=== PATIENT | female | born 1965 | race Caucasian/White ===

== ENCOUNTER → 2021-08-21 | Outpatient (CLI) | payer OTHER ==
[2021-08-21 13:11] VITALS: BP 137/94; PULSE 95; RESP 16; TEMP 95
--- NOTE | 2021-08-21 13:33 | P.GSHP ---
History of Present Illness H&P Date: 08/21/21 Chief Complaint: abnormal right breast mammogram Maddy is a 56 year old white female seen in consultation for Edie San regarding a mammographic abnormality in her right breast. She had a bilateral mammogram performed on 05-06-2021 which resulted in additional views of the right breast. Additional views of the right breast were performed on [id number] which revealed pleomorphic calcifications in the right breast at 11:00. Stereotactic core biopsy was recommended. She did have a right breast stereotacti4 [facility] [place] biopsy at the 12 o'clock position in 2019 which was benign. Not feel any lumps masses or nodules of concern in either breast. She is not complaining of any nipple discharge or skin changes. She is not complaining of any infection or trauma to the breast. Caffeine: 4 cans of coke/day nicotine: none chocolate: occasional Family History: mother: breast at 60 father: prostate brother: testicular paternal grandmother: bladder cancer Hormonal History: menarche: 14 M1, age at first : 28, breast feed: yes menopause: last period 9 months ago/ ablation done BCP: 18 until 27 hormones: none Surgical history: tubal tonsil and adenoids uterine ablation sinus surgery twice Medical History: depression HTN Social History: smoke: none alcohol: occasional drugs: none - Constitutional Constitutional: Reports sweats - EENT Eyes: denies blurred vision, denies pain Ears: deny: decreased hearing, tinnitus Ears, nose, mouth and throat: Denies headache, Denies sore throat - Breasts Breasts: bilateral: as per HPI - Cardiovascular Cardiovascular: Denies chest pain, Denies shortness of breath - Respiratory Respiratory: Denies cough, Denies 7 - Gastrointestinal Gastrointestinal: Denies abdominal pain, Denies diarrhea, Denies nausea, Denies vomiting - Genitourinary (Female) Genitourinary: Denies dysuria, Denies hematuria - Menstruation Comment: perimenopausal - Musculoskeletal Musculoskeletal: Denies myalgias - Integumentary Integumentary: Denies pruritus, Denies rash - Neurological Neurological: Denies numbness, Denies weakness - Psychiatric Psychiatric: Reports depression - Endocrine Endocrine: Denies fatigue, Denies weight change - Hematologic/Lymphatic Comment: none - Allergic/Immunologic Allergic/Immunologic: Reports seasonal allergies Past Medical History Past Medical History: Hypertension History of Any Multi-Drug Resistant Organisms: None Reported Past Surgical History: Adenoidectomy, Tonsillectomy, Tubal Ligation, Uterine Ablation Past Anesthesia/Blood Transfusion Reactions: No Reported Reaction Past Psychological History: Depression Smoking Status: Never smoker Past Alcohol Use History: Occasional Past Drug Use History: None Reported Medications and Allergies Home Medications Medication Instructions Recorded Confirmed Type Citalopram Hydrobromide [CeleXA] 10 mg PO DAILY 07/14/21 08/21/21 History Hydrochlorothiazide 12.5 mg PO DAILY PRN 07/14/21 08/21/21 History [hydroCHLOROthiazide] amLODIPine [Norvasc] 10 mg PO DAILY 07/14/21 08/21/21 History Allergies Allergy/AdvReac Type Severity Reaction Status Date / Time No Known Allergies Allergy Verified 08/21/21 13:04 Surgical - Exam Vital Signs Temp Pulse Resp BP 95 F L 95 16 137/94 08/21/21 13:04 08/21/21 13:04 08/21/21 13:04 08/21/21 13:04 BMI 28.3 - General well developed, well nourished, no distress - Eyes normal ocular movement - ENT no hearing loss, no congestion - Neck trachea midline - Respiratory normal respiratory effort, clear to auscultation - Cardiovascular Rhythm: regular Heart Sounds: normal: S1, S2 - Abdomen Abdomen: soft, non tender, no guarding, no rigid, no rebound - Integumentary normal turgor - Neurologic no disoriented, no combative - Psychiatric oriented to time, oriented to person, oriented to place, speech is normal, memory intact Breast Exam: BRA: 36DD Inspection: bilateral grade 2/3 ptosis palpation: Right breast: Multi-positional exam fibrocystic changes no dominant masses or no dules of concern Right axilla: No adenopathy of concern Left breast: Multi-positional exam fibrocystic changes no dominant masses or nodules of concern Left axilla: No adenopathy of concern Results Mammogram reviewed with Dr. Cano, microcalcifications noted in the upper inner quadrant right breast for which stereotactic core biopsy recommended Assessment and Plan Assessment: Impression: Microcalcifications of concern right breast upper inner quadrant Fibrocystic breast changes Positive family history of cancer Plan: Stereotactic core biopsy Risk and benefits of the procedure discussed with the patient. Risks include but are not limited to bleeding, infection, reaction to the anesthetic. Additionally if the lesion biopsy were felt to be discordant or not adequately sampled an open biopsy may be recommended. Alternatives such as watchful waiting or open biopsy or discussed but not recommended. The patient unders tands and wishes to proceed. CC: Edie San N.P., Dr. Mcbride
== END | disposition home or self-care (01) ==
LOC: WWCWWP 12:47
PROVIDERS: ATTEND Surgery
DX: Z53.9 Procedure and treatment not carried out, unspecified reason (principal)

== ENCOUNTER → 2021-08-22 | Day surgery (SDC) | payer OTHER ==
[2021-08-22 07:22] VITALS: RESP 16
--- NOTE | 2021-08-22 09:00 | P.PCN ---
Date of Procedure: 08/22/21 Preoperative Diagnosis: Mammographic abnormality right breast Postoperative Diagnosis: Same Procedure(s) Performed: Stereotactic core biopsy right breast Anesthesia: local Surgeon: Taylor Guillen Pathology: other (breast tissue) Condition: stable Disposition: same day Indications for Procedure: Mammographic abnormality right breast upper inner quadrant Operative Findings: Radiographic specimen reveals microcalcifications of concern Description of Procedure: Maddy is a 56-year-old white female who The mammogram was noted to have microcalcifications of concern at the upper inner aspect of the right breast. Stereotactic core biopsy was recommended. Risks and benefits of the procedure were discussed with the patient. Risks include but are not limited to his cornea sampling, bleeding, infection, reaction to the anesthetic. Alternatives such as watchful waiting or resection the operating room were discussed but not recommended. The patient understood and agreed to the procedure. The patient was taken to the stereotactic core biopsy room. She was positioned prone on the low rad table. A system support analyst film was obtained. The area of concern was identified and targeted. A medial to lateral approach was utilized. The breast was prepped using Betadine. 20 mL of 1% lidocaine were used to anesthetize the area of concern. A 9-gauge vacuum-assisted core rotating biopsy needle was driven to the correct coordinates and fired. A post-fire film was obtained. The needle appeared to be in the correct location. 13 specimens were obtained and radiographs. Only 2 areas of microcalcification were identified and it was felt that a better sampling could be obtained. After repeat radiograph the needle was repositioned. Additional samples were obtained from the 12 to 6 o'clock position through 9:00. Radiograph of the specimen revealed the calcifications of concern. The wound was lavaged. After assured that hemostasis was attained a secure kisha top Clip was placed. This appeared to be in the correct location. The patient tolerated the procedure in stable condition. Specimen is sent for pathology. Patient will follow-up with Dr. Burnham next week. It is felt that an adequate sample of the correct area was obtained.
[2021-08-22 09:15] VITALS: BP 126/82; PULSE 86; TEMP 98.6
--- NOTE | 2021-08-25 08:51 | MM ---
romelia is a 56 year old female who on mammogram was noted to have microcalcifications of concern at the upper inner aspect of the right breast. Stereotactic core biopsy was recommended. Risks and benefits of the procedure were discussed with the patient. Risks include but are not limited to discordant sampling, bleeding, infection, reaction to the anesthetic. Alternatives such as watchful waiting or resection in the operating room were discussed but not recommended. The patient understood and agreed to the procedure. The patient was taken to the stereotactic core biopsy room. She was positioned prone on the lo-rad table. A print binding worker film was obtained. The area of concern was identified and targeted. A medial to lateral approach was utilized. The breast was prepped using Betadine. 20 mL of 1% lidocaine were used to anesthetize the area of concern. A 9-gauge vacuum-assisted core rotating biopsy needle was driven to the correct coordinates and fired. A post-fire film was obtained. The needle appeared to be in the correct location. 13 specimens were obtained and an x-ray preformed of the specimen. Only 2 areas of microcalcification were identified and it was felt that a better sampling could be obtained. After repeat radiograph the needle was repositioned. Additional samples were obtained from the 12 to 6 o'clock position through 9:00. Radiograph of the specimen revealed the calcifications of concern. The wound was lavaged. After being assured that hemostasis was attained a secure kisha top-hat Clip was placed. This appeared to be in the correct location. The patient tolerated the procedure in stable condition. Specimen was sent for pathology. Patient will follow-up with Dr. Burnham next week. It is felt that an adequate sample of the correct area was obtained. LUCI
== END ==
LOC: RADMAMWWP 07:06
PROVIDERS: ATTEND Surgery
DX: N60.11 Diffuse cystic mastopathy of right breast (principal); N64.1 Fat necrosis of breast; R92.0 Mammographic microcalcification found on diagnostic imaging of breast; R92.8 Other abnormal and inconclusive findings on diagnostic imaging of breast; N62 Hypertrophy of breast
CPT/HCPCS: 88305; 19081; A4648; J2001

== ENCOUNTER → 2021-08-28 | Outpatient (CLI) | payer OTHER ==
[2021-08-28 13:22] VITALS: BP 125/87; PULSE 87; RESP 16; TEMP 98
--- NOTE | 2021-08-28 13:32 | P.PN ---
Subjective Progress Note Date: 08/28/21 Principal diagnosis: fat necrosis right breast Maddy is a 56 year old white female status post right breast stero biopsy on 08-22-21. Her pathology was benign. It showed focal fat necrosis and microcalcification. This was felt to be benign and concordant. She tolerated the procedure without difficulty. Objective - Vital Signs Vital signs: Vital Signs Temp 98.0 F 08/28/21 13:14 Pulse 87 08/28/21 13:14 Resp 16 08/28/21 13:14 BP 125/87 08/28/21 13:14 Pulse Ox Intake & Output 08/27/21 08/28/21 08/28/21 18:59 06:59 18:59 Weight 65.771 kg - Constitutional General appearance: Present: cooperative - EENT Eyes: Present: EOMI ENT: Present: hearing grossly normal - Neck Neck: Present: normal ROM - Respiratory Respiratory: bilateral: CTA - Cardiovascular Heart sounds: normal: S1, S2 - Integumentary Integumentary Comment(s): biopsy site right breast mild ecchymosis no evidence of hematoma or infection - Musculoskeletal Musculoskeletal: Present: gait normal - Psychiatric Psychiatric: Present: A&O x's 3, appropriate affect, intact judgment & insight Assessment and Plan Assessment: Impression: 1. Right breast core biopsy benign focal fat necrosis and microcalcification Plan: Repeat right breast mammogram in 6 months with examination at that time CC: Edie San
== END | disposition home or self-care (01) ==
LOC: WWCWWP 12:49
PROVIDERS: ATTEND Surgery
DX: Z53.9 Procedure and treatment not carried out, unspecified reason (principal)

== ENCOUNTER → 2022-02-20 | Outpatient (CLI) | payer OTHER ==
--- NOTE | 2022-02-23 14:00 | MM ---
Reason for Exam: Follow-up at short interval from prior study. Last screening mammogram was performed 9 month(s) ago. Patient History: Menarche at age 13. First Full-Term at age 28. Postmenopausal. Patient has history of breast feeding. 08/22/2021, Benign Core Biopsy on the right side. Mother had breast cancer, left, age 60. Risk Values: Irene 5 year model risk: 3.5%. NCI Lifetime model risk: 22.3%. Prior Study Comparison: 05/06/2021 Bilateral MG 3D screening mammo w/cad, [place]. 05/29/2021 Right MG 3D work up w/cad RT, [place]. Tissue Density: Right: The breast tissue is heterogeneously dense. This may lower the sensitivity of mammography. Findings: Analyzed By CAD. There are 2 mammotome biopsy clips in the right breast redemonstrated. Regional benign appearing round calcifications in the right breast upper aspect are redemonstrated. Benign-appearing right axillary lymph nodes are redemonstrated. No suspicious new mass or distortion in the right breast. Overall Assessment: Benign, BI-RAD 2 Management: Screening Mammogram of both breasts in 3 months. Back on annual schedule. Results were given to the patient verbally at the time of exam. Electronically signed and approved by: Alexander Ann M.D.
== END | disposition home or self-care (01) ==
LOC: RADMAMWWP 14:46
PROVIDERS: ATTEND Surgery
DX: R92.8 Other abnormal and inconclusive findings on diagnostic imaging of breast (principal)
CPT/HCPCS: 77065; G0279; 77061

== ENCOUNTER → 2022-02-26 | Outpatient (CLI) | payer OTHER ==
[2022-02-26 12:40] VITALS: BP 129/86; PULSE 87; RESP 16; TEMP 98.1
--- NOTE | 2022-02-26 13:02 | P.PN ---
Subjective Progress Note Date: 02/26/22 Maddy is a 56 year old white female seen in consultation for Edie San regarding a mammographic abnormality in her right breast. She had a bilateral mammogram performed on 05-06-2021 which resulted in additional views of the right breast. Additional views of the right breast were performed on [id number] which revealed pleomorphic calcifications in the right breast at 11:00. Stereotactic core biopsy was recommended. She did have a right breast stereotactic core biopsy at the 12 o'clock position in 2019 which was benign. Not feel any lumps masses or nodules of concern in either breast. She is not complaining of any nipple discharge or skin changes. She is not complaining of any infection or trauma to the breast. She had a stero core biopsy on 08-22-21 which was benign specific. She had a repeat right breast mammogram on 02-20-22 which was benign BIRAD 2. Is not complaining of any lumps masses or nodules of concern in either breast. Caffeine: 4 cans of coke/day nicotine: none chocolate: occasional Family History: mother: breast at 60 father: prostate brother: testicular paternal grandmother: bladder cancer Hormonal History: menarche: 14 M1, age at first : 28, breast feed: yes menopause: last period 9 months ago/ ablation done BCP: 18 until 27 hormones: none Surgical history: tubal tonsil and adenoids uterine ablation sinus surgery twice Medical History: depression HTN Social History: smoke: none alcohol: occasional drugs: none - Constitutional Constitutional: Reports sweats - EENT Eyes: denies blurred vision, denies pain Ears: deny: decreased hearing, tinnitus Ears, nose, mouth and throat: Denies headache, Denies sore throat - Breasts Breasts: bilateral: as per HPI - Cardiovascular Cardiovascular: Denies chest pain, Denies shortness of breath - Respiratory Respiratory: Denies cough - Gastrointestinal Gastrointestinal: Denies abdominal pain, Denies diarrhea, Denies nausea, Denies vomiting - Genitourinary (Female) Genitourinary: Denies dysuria, Denies hematuria - Menstruation Comment: perimenopausal - Musculoskeletal Musculoskeletal: Denies myalgias - Integumentary Integumentary: Denies pruritus, Denies rash - Neurological Neurological: Denies numbness, Denies weakness - Psychiatric Psychiatric: Reports depression - Endocrine Endocrine: Denies fatigue, Denies weight change - Hematologic/Lymphatic Comment: none - Allergic/Immunologic Allergic/Immunologic: Reports seasonal allergies Objective - Vital Signs Vital signs: Vital Signs Temp 98.1 F 02/26/22 12:37 Pulse 87 02/26/22 12:37 Resp 16 02/26/22 12:37 BP 129/86 02/26/22 12:37 Pulse Ox 97 02/26/22 12:37 FiO2 Intake & Output 02/25/22 02/26/22 02/26/22 18:59 06:59 18:59 Weight 65.771 kg - Constitutional General appearance: Present: cooperative - EENT Eyes: Present: EOMI ENT: Present: hearing grossly normal - Neck Neck: Present: normal ROM - Respiratory Respiratory: bilateral: CTA - Cardiovascular Rhythm: regular Heart sounds: normal: S1, S2 - Integumentary Integumentary: Present: normal turgor - Musculoskeletal Musculoskeletal: Present: gait normal - Psychiatric Psychiatric: Present: A&O x's 3, appropriate affect, intact judgment & insight - Additional findings Additional findings: Breast exam: Bra: 36 DD Inspection: Bilateral grade 2 ptosis Palpation: Right breast: Multi-positional exam no dominant masses or nodules of concern, fibrocystic changes, biopsy site identified healed well Right axilla: No adenopathy of concern Left breast: 40 positional exam no dominant masses or nodules of concern, fibrocystic changes Left axilla: No adenopathy of concern Assessment and Plan Assessment: Impression: Fibrocystic breast changes Plan: Bilateral mammogram in 3 months with physician exam at that time Cc: Dr. Tarik Mcbride
== END ==
LOC: WWCWWP 12:25
PROVIDERS: ATTEND Surgery
DX: N60.11 Diffuse cystic mastopathy of right breast (principal); N60.12 Diffuse cystic mastopathy of left breast; F32.A Depression, unspecified; I10 Essential (primary) hypertension

== ENCOUNTER → 2022-05-25 | Outpatient (CLI) | payer OTHER ==
--- NOTE | 2022-05-26 08:35 | MM ---
Reason for Exam: Screening (asymptomatic). Last screening mammogram was performed 12 month(s) ago. Patient History: Menarche at age 13. First Full-Term at age 28. Postmenopausal. Patient has history of breast feeding. 12/21/2014, MG stereo VAD BX RT on the Right side. 08/22/2021, Benign Core Biopsy on the right side. Mother had breast cancer, left, age 60. Risk Values: Irene 5 year model risk: 3.6%. NCI Lifetime model risk: 21.9%. Prior Study Comparison: 05/06/2021 Bilateral MG 3D screening mammo w/cad, [place]. 05/29/2021 Right MG 3D work up w/cad RT, [place]. 02/20/2022 Right MG 3D diag mammo w/cad RT, [facility]. Tissue Density: There are scattered fibroglandular densities. Findings: Analyzed By CAD. At the upper medial aspect of the right breast there are some indeterminate microcalcifications not seen definitively on prior exam possibly 6 cm from the nipple on the CC view, 8 cm on the MLO view. Notification views are recommended. Overall Assessment: Incomplete: need additional imaging evaluation, BI-RAD 0 Management: Special View Mammogram of the right breast. A clinical breast exam by your physician is recommended on an annual basis and results should be correlated with mammographic findings. Electronically signed and approved by: Nestor Mai M.D. Radiologis
== END | disposition home or self-care (01) ==
LOC: RADMAMWWP 09:15
PROVIDERS: ATTEND Surgery
DX: Z12.31 Encounter for screening mammogram for malignant neoplasm of breast (principal)
CPT/HCPCS: 77063; 77067

== ENCOUNTER → 2022-05-28 | Outpatient (CLI) | payer OTHER ==
[2022-05-28 08:50] VITALS: BP 152/82; PULSE 64; RESP 17; TEMP 98.9
--- NOTE | 2022-05-28 10:03 | P.PN ---
Subjective Progress Note Date: 05/28/22 Principal diagnosis: abnormal right breast mammogram Maddy was initially seen about one year ago year old white female seen in consultation for Edie San regarding a mammographic abnormality in her right breast. She had a bilateral mammogram performed on 05-06-2021 which res ulted in additional views of the right breast. Additional views of the right breast were performed on [id number] which revealed pleomorphic calcifications in the right breast at 11:00. Stereotactic core biopsy was recommended. She did have a right breast stereotactic core biopsy at the 12 o'clock position in 2019 which was benign. Not feel any lumps masses or nodules of concern in either breast. She is not complaining of any nipple discharge or skin changes. She is not complaining of any infection or trauma to the breast. She had a stero core biopsy on 08-22-21 which was benign specific. She had a repeat right breast mammogram on 02-20-22 which was benign BIRAD 2. Is not complaining of any lumps masses or nodules of concern in either breast. A repeat bilateral mammogram was done on 05-25-22. Additional views of the right breast were recommended. A persistent group of calcification were noted in the right breast. The patient was recommended to have a stero biopsy. The films were reviewed with radiologist Dr. Lemus. The patient does not feel any lumps masses or nodules of concern in either breast. Caffeine: 4 cans of coke/day nicotine: none chocolate: occasional Family History: mother: breast at 60 father: prostate brother: testicular paternal grandmother: bladder cancer Hormonal History: menarche: 14 M1, age at first : 28, breast feed: yes menopause: last period 9 months ago/ ablation done BCP: 18 until 27 hormones: none Surgical history: tubal tonsil and adenoids uterine ablation sinus surgery twice Medical History: depression HTN Social History: smoke: none alcohol: occasional drugs: none - Constitutional Constitutional: Reports sweats - EENT Eyes: denies blurred vision, denies pain Ears: deny: decreased hearing, tinnitus Ears, nose, mouth and throat: Denies headache, Denies sore throat - Breasts Breasts: bilateral: as per HPI - Cardiovascular Cardiovascular: Denies chest pain, Denies shortness of breath - Respiratory Respiratory: Denies cough - Gastrointestinal Gastrointestinal: Denies abdominal pain, Denies diarrhea, Denies nausea, Denies vomiting - Genitourinary (Female) Genitourinary: Denies dysuria, Denies hematuria - Menstruation Comment: perimenopausal - Musculoskeletal Musculoskeletal: Denies myalgias - Integumentary Integumentary: Denies pruritus, Denies rash - Neurological Neurological: Denies numbness, Denies weakness - Psychiatric Psychiatric: Reports depression - Endocrine Endocrine: Denies fatigue, Denies weight change - Hematologic/Lymphatic Comment: none - Allergic/Immunologic Allergic/Immunologic: Reports seasonal allergies Objective - Vital Signs Vital signs: Vital Signs Temp 98.9 F 05/28/22 08:48 Pulse 64 05/28/22 08:48 Resp 17 05/28/22 08:48 BP 152/82 05/28/22 08:48 Pulse Ox 100 05/28/22 08:48 FiO2 Intake & Output 05/27/22 05/28/22 05/28/22 18:59 06:59 18:59 Weight 77.111 kg - Constitutional General appearance: Present: cooperative - EENT Eyes: Present: EOMI ENT: Present: hearing grossly normal - Neck Neck: Present: normal ROM - Respiratory Respiratory: bilateral: CTA - Cardiovascular Rhythm: regular Heart sounds: normal: S1, S2 - Gastrointestinal General gastrointestinal: Present: soft - Integumentary Integumentary: Present: normal turgor - Musculoskeletal Musculoskeletal: Present: gait normal - Psychiatric Psychiatric: Present: A&O x's 3, appropriate affect, intact judgment & insight - Additional findings Additional findings: Breast Exam: BRA: 36DD inspection: bilateral grade 2 ptosis Palpation: right breast: Multiple positional exam fibrocystic changes no dominant masses or nodules of concern Right axilla: No adenopathy of concern Left breast: Multi-positional exam fibrocystic changes no dominant masses or nodules of concern Left axilla: No adenopathy of concern Assessment and Plan Assessment: Impression: Bilateral fibrocystic breast changes Radiographic area of microcalcifications right breast for which core biopsy is recommended Plan: Stereotactic core biopsy right breast risk and benefits of the procedure were discussed with the patient. Risks include but are not limited to bleeding, infection, reaction to the anesthetic. Additionally of the specimen were to be discordant done for the resection the operating room may be recommended. The patient understands this and wishes to proceed. Alternatives have been discussed which include watchful waiting a resection of the operating room before not recommended. CC: Dr. Mcbride
== END | disposition home or self-care (01) ==
LOC: WWCWWP 08:14
PROVIDERS: ATTEND Surgery
DX: Z53.9 Procedure and treatment not carried out, unspecified reason (principal)

== ENCOUNTER → 2022-05-28 | Outpatient (CLI) | payer OTHER ==
--- NOTE | 2022-05-28 08:49 | MM ---
Reason for Exam: Additional evaluation requested from abnormal screening. Last screening mammogram was performed less than 1 month ago. Patient History: Menarche at age 13. First Full-Term at age 28. Postmenopausal. Patient has history of breast feeding. 12/21/2014, MG stereo VAD BX RT on the Right side. 08/22/2021, Benign Core Biopsy on the right side. Mother had breast cancer, left, age 60. Risk Values: Irene 5 year model risk: 3.6%. NCI Lifetime model risk: 21.9%. Prior Study Comparison: 05/06/2021 Bilateral MG 3D screening mammo w/cad, [place]. 05/29/2021 Right MG 3D work up w/cad RT, [place]. 02/20/2022 Right MG 3D diag mammo w/cad RT, [facility]. 05/25/2022 Bilateral MG 3D screening mammo w/cad, [facility]. Tissue Density: Right: The breast tissue is heterogeneously dense. This may lower the sensitivity of mammography. Findings: Analyzed By CAD. There are 2 biopsy clips in the right breast redemonstrated. There are scattered benign-appearing round calcifications throughout the right breast redemonstrated. There is persistent 3 mm heterogeneous group of calcifications in the middle depth also slightly inner aspect that is new from older studies on additional views. Overall Assessment: Suspicious, BI-RAD 4 Management: Stereotactic Core Biopsy of the right breast. Stereo core biopsy now. Results were given to the patient verbally at the time of exam. Electronically signed and approved by: Alexander Ann M.D.
== END | disposition home or self-care (01) ==
LOC: RADMAMWWP 08:12
PROVIDERS: ATTEND Surgery
DX: R92.8 Other abnormal and inconclusive findings on diagnostic imaging of breast (principal)
CPT/HCPCS: 77065; G0279; 77061

== ENCOUNTER → 2022-07-10 | Day surgery (SDC) | payer OTHER ==
[2022-07-10 07:19] VITALS: RESP 16; TEMP 98
--- NOTE | 2022-07-10 08:46 | P.PCN ---
Date of Procedure: 07/10/22 Preoperative Diagnosis: Microcalcifications of concern right breast/upper medial aspect Postoperative Diagnosis: Same Procedure(s) Performed: Right breast stereotactic core biopsy Anesthesia: local Surgeon: Taylor Guillen Pathology: other (Breast biopsy microcalcifications and specimen) Condition: stable Disposition: same day Indications for Procedure: Radiographic abnormality right breast Operative Findings: Radiographic specimen reveals microcalcifications of concern Description of Procedure: The patient is a 57-year-old white female who on a mammogram was noted to have microcalcifications of concern in the right breast in the upper outer quadrant region. Stereotactic core biopsy was recommended. Risks and benefits of procedure were discussed with the patient and she wished to proceed. The patient was taken to the stereotactic core biopsy room. She was positioned prone on the low lab table. A punch operator film was obtained. CC from above approach was utilized. The area of concern was identified. The lesion was targeted. The breast was prepped using Betadine. When he cc of 1% lidocaine were used to anesthetize the area of concern. A 9-gauge vacuum-assisted core rotating biopsy needle was driven to the correct coordinates. A prefire film was obtained. The needle was noted to be in the correct location. The needle was fired. A posterior film was obtained. The needle was noted to be in the correct location. 13 core biopsy specimens were obtained. Radiograph of the specimens revealed the calcifications of concern had been adequately sampled. The area of concern was lavaged. Secure marked top clip was placed. The clip was noted to be in the correct location. The patient tolerated procedure in stable condition. The patient will follow with Dr. Burnham next week. Specimen was sent to pathology.
[2022-07-10 08:56] VITALS: BP 125/80; PULSE 78
--- NOTE | 2022-07-13 08:15 | MM ---
Date of Procedure: 07/10/22 Preoperative Diagnosis: Microcalcifications of concern right breast/upper medial aspect Postoperative Diagnosis: Same Procedure(s) Performed: Right breast stereotactic core biopsy Anesthesia: local Surgeon: Taylor Guillen Pathology: other (Breast biopsy microcalcifications in the specimen) Condition: stable Disposition: same day Indications for Procedure: Radiographic abnormality right breast Operative Findings: Radiographic specimen reveals microcalcifications of concern Description of Procedure: The patient is a 57-year-old white female who on a mammogram was noted to have microcalcifications of concern in the right breast in the upper outer quadrant region. Stereotactic core biopsy was recommended. Risks and benefits of procedure were discussed with the patient and she wished to proceed. The patient was taken to the stereotactic core biopsy room. She was positioned prone on the low rad table. A vocational school teacher film was obtained. CC from above approach was utilized. The area of concern was identified. The lesion was targeted. The breast was prepped using Betadine. Twenty cc of 1% lidocaine were used to anesthetize the area of concern. A 9-gauge vacuum-assisted core rotating biopsy needle was driven to the correct coordinates. A prefire film was obtained. The needle was noted to be in the correct location. The needle was fired. A post fire film was obtained. The needle was noted to be in the correct location. 13 core biopsy specimens were obtained. Radiograph of the specimens revealed the calcifications of concern had been adequately sampled. The area of concern was lavaged. Secure kisha top hat clip was placed. The clip was noted to be in the correct location. The patient tolerated procedure in stable condition. The patient will follow with Dr. Burnham next week. Specimen was sent to pathology. [facility]Hang
== END ==
LOC: RADMAMWWP 07:06
PROVIDERS: ATTEND Surgery
DX: N64.1 Fat necrosis of breast (principal); R92.8 Other abnormal and inconclusive findings on diagnostic imaging of breast
CPT/HCPCS: 88305; 19081; A4648; J2001

== ENCOUNTER → 2022-07-16 | Outpatient (CLI) | payer OTHER ==
[2022-07-16 16:02] VITALS: BP 119/80; PULSE 81; RESP 16; TEMP 97.9
--- NOTE | 2022-07-16 16:22 | P.PN ---
Subjective Progress Note Date: 07/16/22 Principal diagnosis: fibrocystic breast disease Maddy is a 57 old white female status post a tactic core biopsy of the right breast on . Pathology was benign and concordant. She tolerated the procedure well. She did have some ecchymosis at the site. She also has a small hematoma at the site. Objective - Vital Signs Vital signs: Vital Signs Temp 97.9 F 07/16/22 15:59 Pulse 81 07/16/22 15:59 Resp 16 07/16/22 15:59 BP 119/80 07/16/22 15:59 Pulse Ox 97 07/16/22 15:59 FiO2 Intake & Output 07/15/22 07/16/22 07/16/22 18:59 06:59 18:59 Weight 67.132 kg - Constitutional General appearance: Present: cooperative - EENT ENT: Present: hearing grossly normal - Neck Neck: Present: normal ROM - Integumentary Integumentary Comment(s): Biopsy sites clean and dry Ecchymosis at the site. Small hematoma Assessment and Plan Assessment: Present: Patient status post right breast are tactic core biopsy , benign concordant Plan: Repeat right breast mammogram 6 months with position exam at that time Patient to follow up sooner if any questions or concerns CC: Dr. Mcbride
== END ==
LOC: WWCWWP 15:40
PROVIDERS: ATTEND Surgery
DX: R92.8 Other abnormal and inconclusive findings on diagnostic imaging of breast (principal)

== ENCOUNTER → 2023-01-15 | Outpatient (CLI) | payer OTHER ==
--- NOTE | 2023-01-15 11:50 | MM ---
Reason for Exam: Follow-up at short interval from prior study. Last screening mammogram was performed 8 month(s) ago. Patient History: Menarche at age 13. First Full-Term at age 28. Postmenopausal. Patient has history of breast feeding. 07/10/2022, Benign MG stereo VAD BX RT on the right side. 12/21/2014, MG stereo VAD BX RT on the Right side. 08/22/2021, Benign Core Biopsy on the right side. Mother had breast cancer, left, age 60. Risk Values: Irene 5 year model risk: 3.6%. NCI Lifetime model risk: 21.9%. Prior Study Comparison: 02/20/2022 Right MG 3D diag mammo w/cad RT, [facility]. 05/25/2022 Bilateral MG 3D screening mammo w/cad, [facility]. 05/28/2022 Right MG 3D work up w/cad RT, [facility]. Tissue Density: Right: There are scattered fibroglandular densities. Findings: Analyzed By CAD. There are three right breast clips present. No new suspicious masses, calcifications or distortions. Overall Assessment: Benign, BI-RAD 2 Management: Screening Mammogram of both breasts in 6 months. Results were given to the patient verbally at the time of exam. Patient should continue monthly self-breast exams. A clinical breast exam by your physician is recommended on an annual basis. This exam should not preclude additional follow-up of suspicious palpable abnormalities. Note on Irene scores and lifetime risk: 1. A Irene score greater than 3% is considered moderate risk. If this is the case, consider specialist referral to assess eligibility for a risk reducing agent. 2. If overall lifetime risk for the development of breast cancer is 20% or higher, the patient may qualify for future screening with alternating mammogram and breast MRI. Electronically signed and approved by: Serg Persaud DO
== END | disposition home or self-care (01) ==
LOC: RADMAMWWP 10:56
PROVIDERS: ATTEND Surgery
DX: R92.8 Other abnormal and inconclusive findings on diagnostic imaging of breast (principal); Z78.0 Asymptomatic menopausal state; Z80.3 Family history of malignant neoplasm of breast
CPT/HCPCS: 77065; G0279; 77061

== ENCOUNTER → 2023-01-15 | Outpatient (CLI) | payer OTHER ==
[2023-01-15 11:48] VITALS: BP 117/82; PULSE 70; RESP 17; TEMP 97.9
--- NOTE | 2023-01-15 11:54 | P.PN ---
Subjective Progress Note Date: 01/15/23 Principal diagnosis: fibrocystic breast changes abnormal right breast mammogram Maddy is a 57 year old white female seen in consultation initially for Edie San regarding a mammographic abnormality in her right breast. She had a bilateral mammogram performed on 05-06-2021 which resulted in additional views of the right breast. Additional views of the right breast were performed on [id number] which revealed pleomorphic calcifications in the right breast at 11:00. Stereotactic core biopsy was recommended. Was done on which revealed fibrocystic change and focal fat necrosis. She did have a right breast stereotactic core biopsy at the 12 o'clock position in 2018 which was benign. She had a bilateral mammogram on [id number] which led to a right breast diagnostic mammogram and a core biopsy on which was again benign specific, scar/fat necrosis. The stereo biopsy Right breast mammogram was performed on 6821 which did not show any lesions of concern 3 clips from 3 prior stereo biopsies are identified, the plan is for repeat bilateral mammogram in May 2023. She does not feel any lumps masses or nodules of concern in either breast. She is not complaining of any nipple discharge or skin changes. She is not complaining of any infection or trauma to the breast. Caffeine: 4 cans of coke/day nicotine: none chocolate: occasional Family History: mother: breast at 60 father: prostate brother: testicular paternal grandmother: bladder cancer Hormonal History: menarche: 14 M1, age at first : 28, breast feed: yes menopause: last period 9 months ago/ ablation done BCP: 18 until 27 hormones: none Surgical history: tubal tonsil and adenoids uterine ablation sinus surgery twice D&C Medical History: depression HTN Social History: smoke: none alcohol: occasional drugs: none - Constitutional Constitutional: Reports sweats - EENT Eyes: denies blurred vision, denies pain Ears: deny: decreased hearing, tinnitus Ears, nose, mouth and throat: Denies headache, Denies sore throat - Breasts Breasts: bilateral: as per HPI - Cardiovascular Cardiovascular: Denies chest pain, Denies shortness of breath - Respiratory Respiratory: Denies cough - Gastrointestinal Gastrointestinal: Denies abdominal pain, Denies diarrhea, Denies nausea, Denies vomiting - Genitourinary (Female) Genitourinary: Denies dysuria, Denies hematuria - Menstruation Comment: perimenopausal - Musculoskeletal Musculoskeletal: Denies myalgias - Integumentary Integumentary: Denies pruritus, Denies rash - Neurological Neurological: Denies numbness, Denies weakness - Psychiatric Psychiatric: Reports depression - Endocrine Endocrine: Denies fatigue, Denies weight change - Hematologic/Lymphatic Comment: none - Allergic/Immunologic Allergic/Immunologic: Reports seasonal allergies Past Medical History Past Medical History: Hypertension History of Any Multi-Drug Resistant Organisms: None Reported Past Surgical History: Adenoidectomy, Tonsillectomy, Tubal Ligation, Uterine Ablation Past Anesthesia/Blood Transfusion Reactions: No Reported Reaction Past Psychological History: Depression Smoking Status: Never smoker Past Alcohol Use History: Occasional Past Drug Use History: None Reported Medications and Allergies Home Medications Medication Instructions Recorded Confirmed Type Citalopram Hydrobromide [CeleXA] 10 mg PO DAILY 07/14/21 08/21/21 History Hydrochlorothiazide 12.5 mg PO DAILY PRN 07/14/21 08/21/21 History [hydroCHLOROthiazide] amLODIPine [Norvasc] 10 mg PO DAILY 07/14/21 08/21/21 History Allergies Allergy/AdvReac Type Severity Reaction Status Date / Time No Known Allergies Allergy Verified 08/21/21 13:04 Objective - Vital Signs Vital signs: Intake & Output 01/14/23 01/15/23 01/15/23 18:59 06:59 18:59 Weight 65.771 kg - Constitutional General appearance: Present: cooperative - EENT Eyes: Present: EOMI ENT: Present: hearing grossly normal - Neck Neck: Present: normal ROM - Respiratory Respiratory: bilateral: CTA - Cardiovascular Rhythm: regular Heart sounds: normal: S1, S2 - Gastrointestinal General gastrointestinal: Present: soft - Integumentary Integumentary: Present: normal turgor - Musculoskeletal Musculoskeletal: Present: gait normal - Psychiatric Psychiatric: Present: A&O x's 3, appropriate affect, intact judgment & insight - Additional findings Additional findings: Breast Exam: BRA: 36DD Inspection: bilateral grade 2/3 ptosis palpation: Right breast: Multi-positional exam fibrocystic changes no dominant masses or nodules of concern Right axilla: No adenopathy of concern Left breast: Multi-positional exam fibrocystic changes no dominant masses or nodules of concern Left axilla: No adenopathy of concern Assessment and Plan Assessment: Impression: Fibrocystic breast changes Right breast mammogram [id number] Persaud Plan: Bilateral mammogram in 6 months with physician exam at that time CC: Edie San N.P., Dr. Mcbride
== END ==
LOC: WWCWWP 10:56
PROVIDERS: ATTEND Surgery
DX: N60.11 Diffuse cystic mastopathy of right breast (principal); I10 Essential (primary) hypertension; F32.A Depression, unspecified; Z80.3 Family history of malignant neoplasm of breast

== ENCOUNTER → 2023-05-26 | Outpatient (CLI) | payer OTHER ==
--- NOTE | 2023-05-26 11:22 | MM ---
Reason for Exam: Additional evaluation requested from prior study. Last screening mammogram was performed 12 month(s) ago. Patient History: Menarche at age 13. First Full-Term at age 28. Postmenopausal. Patient has history of breast feeding. 07/10/2022, Benign MG stereo VAD BX RT on the right side. 12/21/2014, MG stereo VAD BX RT on the Right side. 08/22/2021, Benign Core Biopsy on the right side. Mother had breast cancer, left, age 60. Risk Values: Irene 5 year model risk: 3.8%. NCI Lifetime model risk: 21.4%. Prior Study Comparison: 05/06/2021 Bilateral MG 3D screening mammo w/cad, [facility]. 05/29/2021 Right MG 3D work up w/cad RT, [facility]. 02/20/2022 Right MG 3D diag mammo w/cad RT, [facility]. 05/25/2022 Bilateral MG 3D screening mammo w/cad, [facility]. 05/28/2022 Right MG 3D work up w/cad RT, [facility]. 01/15/2023 Right MG 3D diag mammo w/cad RT, [facility]. Tissue Density: The breast tissue is heterogeneously dense. This may lower the sensitivity of mammography. Findings: Analyzed By CAD. Stable benign calcifications seen bilaterally. No evidence of mass or distortion. Previous right-sided breast biopsy. Overall Assessment: Benign, BI-RAD 2 Management: Screening Mammogram of both breasts in 1 year. . Results were given to the patient verbally at the time of exam. Patient should continue monthly self-breast exams. A clinical breast exam by your physician is recommended on an annual basis. This exam should not preclude additional follow-up of suspicious palpable abnormalities. Note on Irene scores and lifetime risk: 1. A Irene score greater than 3% is considered moderate risk. If this is the case, consider specialist referral to assess eligibility for a risk reducing agent. 2. If overall lifetime risk for the development of breast cancer is 20% or higher, the patient may qualify for future screening with alternating mammogram and breast MRI. Electronically signed and approved by: Long Marti M.D. [facility]iolog[facility]
== END | disposition home or self-care (01) ==
LOC: RADMAMWWP 10:54
PROVIDERS: ATTEND Surgery
DX: R92.333 Mammographic heterogeneous density, bilateral breasts (principal); Z78.0 Asymptomatic menopausal state; Z80.3 Family history of malignant neoplasm of breast
CPT/HCPCS: 77066; G0279; 77062

== ENCOUNTER 2023-10-20 12:32 | Emergency (ER) | payer OTHER ==
--- NOTE | 2023-10-20 13:45 | ED ---
General Adult HPI - General Chief complaint: Dizziness Stated complaint: Dizziness Time Seen by Provider: 10/20/23 13:05 Source: patient, family, RN notes reviewed Mode of arrival: ambulatory Limitations: no limitations - History of Present Illness Initial comments: 58-year-old female presents to the emergency department for evaluation of dizziness x 3 days. She denies any known triggers. She notes that it is improved when she closes her eyes. She notes that it feels like she is rocking on a boat. She denies any history of this in the past. She does note that she was recently ill with influenza. She notes that the symptoms have mostly improv ed but still has a mild cough. She has not tried any [id number] medications to help her. - Related Data Home Medications Medication Instructions Recorded Confirmed Citalopram Hydrobromide [CeleXA] 10 mg PO DAILY 07/14/21 01/15/23 amLODIPine [Norvasc] 10 mg PO DAILY 07/14/21 01/15/23 hydroCHLOROthiazide 12.5 mg PO DAILY PRN 07/14/21 01/15/23 Previous Rx's Medication Instructions Recorded Meclizine [Antivert] 25 mg PO TID #15 tab 10/20/23 Allergies Allergy/AdvReac Type Severity Reaction Status Date / Time No Known Allergies Allergy Verified 01/15/23 11:23 Review of Systems ROS Statement: Those systems with pertinent positive or pertinent negative responses have been documented in the HPI. ROS Other: All systems not noted in ROS Statement are negative. Past Medical History Past Medical History: Hypertension Additional Past Medical History / Comment(s): depression History of Any Multi-Drug Resistant Organisms: None Reported Past Surgical History: Adenoidectomy, Tonsillectomy, Tubal Ligation, Uterine Ablation Additional Past Surgical History / Comment(s): breast biopsy 2020 Past Anesthesia/Blood Transfusion Reactions: No Reported Reaction Past Psychological History: Depression Smoking Status: Never smoker Past Alcohol Use History: Occasional Past Drug Use History: None Reported General Exam Limitations: no limitations General appearance: alert, in no apparent distress Head exam: Present: atraumatic, normocephalic, normal inspection Eye exam: Present: normal appearance, PERRL, EOMI. Absent: scleral icterus, con junctival injection, periorbital swelling ENT exam: Present: normal exam, mucous membranes moist Neck exam: Present: normal inspection. Absent: tenderness, meningismus, lymphadenopathy Respiratory exam: Present: normal lung sounds bilaterally. Absent: respiratory distress, wheezes, rales, rhonchi, stridor Cardiovascular Exam: Present: regular rate, normal rhythm, normal heart sounds. Absent: systolic murmur, diastolic murmur, rubs, gallop, clicks GI/Abdominal exam: Present: soft, normal bowel sounds. Absent: distended, tenderness, guarding, rebound, rigid Extremities exam: Present: normal inspection, full ROM, normal capillary refill. Absent: tenderness, pedal edema, joint swelling, calf tenderness Back exam: Present: normal inspection Neurological exam: Present: alert, oriented X3, CN II-XII intact. Absent: motor sensory deficit Psychiatric exam: Present: normal affect, normal mood Skin exam: Present: warm, dry, intact, normal color. Absent: rash Course Vital Signs 10/20/23 10/20/23 12:38 16:09 Temperature 98.8 F 98.2 F Pulse Rate 78 66 Respiratory 16 18 Rate Blood Pressure 136/84 142/86 O2 Sat by Pulse 98 99 Oximetry Medical Decision Making - Medical Decision Making Was pt. sent in by a medical professional or institution (, PA, METER MECHANIC, urgent care, hospital, or usp...) When possible be specific @ -No Did you speak to anyone other than the patient for history (EMS, parent, family, police, friend...)? What history was obtained from this source @ -No Did you review nursing and triage notes (agree or disagree)? Why? @ -I reviewed and agree with nursing and triage notes Were old charts reviewed (outside hosp., previous admission, EMS record, old EKG, old radiological studies, urgent care reports/EKG's, usp records)? Report findings @ -No old charts were reviewed Differential Diagnosis (chest pain, altered mental status, abdominal pain women, abdominal pain men, vaginal bleeding, weakness, fever, dyspnea, syncope, headache, dizziness, GI bleed, back pain, seizure, CVA, palpatations, mental health, musculoskeletal)? @ -Differential Dizziness: Benign paroxysmal positional Vertigo, Menieres disease, otitis media, acoustic neuroma, vertebrobasilar insufficiency, cerebellar stroke, encephalitis, hypovolemic, arrhythmia, coronary artery syndrome, anemia, this is not meant to be an all-inclusive list EKG interpreted by me (3pts min.). @ -EKG at 1231 shows sinus rhythm rate 71, RI 178, QRS 81, QTQTc [id number] X-rays interpreted by me (1pt min.). @ -Chest x-ray shows no acute infiltrate CT interpreted by me (1pt min.). @ -None done U/S interpreted by me (1pt. min.). @ -None done What testing was considered but not performed or refused? (CT, X-rays, U/S, labs)? Why? @ -None What meds were considered but not given or refused? Why? @ -None Did you discuss the management of the patient with other professionals (professionals i.e. , PA, METER MECHANIC, lab, RT, psych nurse, social worker clinical, heat set operator, teacher, ict help desk officer, pillowcase maker)? Give summary @ -No Was smoking cessation discussed for >3mins.? @ -No Was critical care preformed (if so, how long)? @ -No Were there social determinants of health that impacted care today? How? (Homelessness, low income, unemployed, alcoholism, drug addiction, transportation, low edu. Level, literacy, decrease access to med. care, fpc, rehab)? @ -No Was there de-escalation of care discussed even if they declined (Discuss DNR or withdrawal of care, Hospice)? DNR status @ -No What co-morbidities impacted this encounter? (DM, HTN, Smoking, COPD, CAD, Cancer, CVA, ARF, Chemo, Hep., AIDS, mental health diagnosis, sleep apnea, morbid obesity)? @ -None Was patient admitted / discharged? Hospital course, mention meds given and route, prescriptions, significant lab abnormalities, going to OR and other pertinent info. @ -Discharge. Patient presented to the emergency department for evaluation of dizziness. Patient underwent laboratory studies. CBC shows WBC of 4.7, hemoglobin 16.2; normal coagulation studies; CMP shows CO2 of 18 with a normal anion gap; creatinine 0.67, otherwise unremarkable; UA shows no evidence for infectious process. Chest x-ray obtained which shows no evidence of acute infiltrate. Patient was provided 1 L normal saline in the emergency department along with 50 mg of meclizine. Patient reevaluated and reports that her symptoms have improved significantly. Patient is able to ambulate to the bathroom without difficulty now. Patient advised on findings and is agreeable with discharge plan. Strict return precautions discussed. Patient stable at time of discharge. Case discussed with Dr. Hou Undiagnosed new problem with uncertain prognosis? @ -No Drug Therapy requiring intensive monitoring for toxicity (Heparin, Nitro, Insulin, Cardizem)? @ -No Were any procedures done? @ -No Diagnosis/symptom? @ -Vertigo Acute, or Chronic, or Acute on Chronic? @ -Acute Uncomplicated (without systemic symptoms) or Complicated (systemic symptoms)? @ -Uncomplicated Side effects of treatment? @ -No Exacerbation, Progression, or Severe Exacerbation? @ -No Poses a threat to life or bodily function? How? (Chest pain, USA, AR, pneumonia, PE, COPD, DKA, ARF, appy, cholecystitis, CVA, Diverticulitis, Homicidal, Suicidal, threat to staff... and all critical care pts) @ -No - Lab Data Result diagrams: 10/20/23 13:52 10/20/23 13:52 Lab Results 10/20/23 10/20/23 10/20/23 Range/Units 13:52 13:52 13:52 WBC 4.7 (3.8-10.6) k/uL RBC 5.36 (3.80-5.40) m/uL Hgb 16.2 H (11.4-16.0) gm/dL Hct 46.2 H (34.0-46.0) % MCV 86.1 (80.0-100.0) fL MCH 30.1 (25.0-35.0) pg MCHC 35.0 (31.0-37.0) g/dL RDW 13.1 (11.5-15.5) % Plt Count 199 (150-450) k/uL MPV 8.3 Neutrophils % 42 % Lymphocytes % 46 % Monocytes % 7 % Eosinophils % 2 % Basophils % 1 % Neutrophils # 2.0 (1.3-7.7) k/uL Lymphocytes # 2.2 (1.0-4.8) k/uL Monocytes # 0.3 (0-1.0) k/uL Eosinophils # 0.1 (0-0.7) k/uL Basophils # 0.1 (0-0.2) k/uL PT 10.2 (10.0-12.5) sec INR 0.9 (<1.2) Sodium (137-145) mmol/L Potassium (3.5-5.1) mmol/L Chloride (98-107) mmol/L Carbon Dioxide (22-30) mmol/L Anion Gap mmol/L BUN (7-17) mg/dL Creatinine (0.52-1.04) mg/dL Est GFR (CKD-EPI)AfAm (>60 ml/min/1.73 sqM) Est GFR (CKD-EPI)NonAf (>60 ml/min/1.73 sqM) Glucose (74-99) mg/dL Calcium (8.4-10.2) mg/dL Total Bilirubin (0.2-1.3) mg/dL AST (14-36) U/L ALT (4-34) U/L Alkaline Phosphatase (38-126) U/L Total Protein (6.3-8.2) g/dL Albumin (3.5-5.0) g/dL Urine Color Colorless Urine Appearance Clear (Clear) Urine pH 6.0 (5.0-8.0) Ur Specific [place] 1.016 (1.001-1.035) Urine Protein Negative (Negative) Urine Glucose (UA) Negative (Negative) Urine Ketones Negative (Negative) Urine Blood Negative (Negative) Urine Nitrite Negative (Negative) Urine Bilirubin Negative (Negative) Urine Urobilinogen <2.0 (<2.0) mg/dL Ur Leukocyte Esterase Negative (Negative) 10/20/23 Range/Units 13:52 WBC (3.8-10.6) k/uL RBC (3.80-5.40) m/uL Hgb (11.4-16.0) gm/dL Hct (34.0-46.0) % MCV (80.0-100.0) fL MCH (25.0-35.0) pg MCHC (31.0-37.0) g/dL RDW (11.5-15.5) % Plt Count (150-450) k/uL MPV Neutrophils % % Lymphocytes % % Monocytes % % Eosinophils % % Basophils % % Neutrophils # (1.3-7.7) k/uL Lymphocytes # (1.0-4.8) k/uL Monocytes # (0-1.0) k/uL Eosinophils # (0-0.7) k/uL Basophils # (0-0.2) k/uL PT (10.0-12.5) sec INR (<1.2) Sodium 141 (137-145) mmol/L Potassium 3.8 (3.5-5.1) mmol/L Chloride 111 H (98-107) mmol/L Carbon Dioxide 18 L (22-30) mmol/L Anion Gap 12 mmol/L BUN 16 (7-17) mg/dL Creatinine 0.67 (0.52-1.04) mg/dL Est GFR (CKD-EPI)AfAm >90 (>60 ml/min/1.73 sqM) Est GFR (CKD-EPI)NonAf >90 (>60 ml/min/1.73 sqM) Glucose 113 H (74-99) mg/dL Calcium 9.5 (8.4-10.2) mg/dL Total Bilirubin 0.8 (0.2-1.3) mg/dL AST 31 (14-36) U/L ALT 34 (4-34) U/L Alkaline Phosphatase 102 (38-126) U/L Total Protein 7.5 (6.3-8.2) g/dL Albumin 4.6 (3.5-5.0) g/dL Urine Color Urine Appearance (Clear) Urine pH (5.0-8.0) Ur Specific [place] (1.001-1.035) Urine Protein (Negative) Urine Glucose (UA) (Negative) Urine Ketones (Negative) Urine Blood (Negative) Urine Nitrite (Negative) Urine Bilirubin (Negative) Urine Urobilinogen (<2.0) mg/dL Ur Leukocyte Esterase (Negative) Disposition Clinical Impression: Vertigo Disposition: HOME SELF-CARE Condition: Stable Instructions (If sedation given, give patient instructions): Dizziness (ED) Additional Instructions: Please follow-up with your primary care provider. Return to the emergency department for new or worsening symptoms as we discussed. Prescriptions: Meclizine [Antivert] 25 mg PO TID #15 tab Is patient prescribed a controlled substance at d/c from ED?: No Referrals: Tarik Mcbride DO [Primary Care Provider] - 1-2 days
--- NOTE | 2023-10-20 14:15 | XR ---
EXAMINATION TYPE: XR chest 2V DATE OF EXAM: 10/20/2023 COMPARISON: None HISTORY: 58-year-old female with cough and dizziness TECHNIQUE: PA and lateral views FINDINGS: The cardiomediastinal silhouette, aorta, and pulmonary vasculature are within normal limits. Lungs an d pleural spaces are clear. IMPRESSION: No acute cardiopulmonary process.
[2023-10-20] MEDS: MECLIZINE 12.5 MG TAB PO STA (14:42)
[2023-10-20] MEDS: SODIUM CHLORIDE 0.9% 1,000 ML IV STA (14:42)
[2023-10-20 14:53] LABS: Basophils # (A) 0.1 k/uL (0-0.2); Basophils % (A) 1 %; Eosinophils # (A) 0.1 k/uL (0-0.7); Eosinophils % (A) 2 %; HCT 46.2 % (34.0-46.0); HGB 16.2 gm/dL (11.4-16.0); Lymphocytes # (A) 2.2 k/uL (1.0-4.8); Lymphocytes % (A) 46 %; MCH 30.1 pg (25.0-35.0); MCV 86.1 fL (80.0-100.0); Mean Platelet Volume 8.3; Monocytes # (A) 0.3 k/uL (0-1.0); Monocytes % (A) 7 %; Neutrophils % (A) 42 %; Platelet Count 199 k/uL (150-450); RBC 5.36 m/uL (3.80-5.40); RDW 13.1 % (11.5-15.5); WBC 4.7 k/uL (3.8-10.6)
[2023-10-20 15:12] LABS: INR 0.9 (<1.2); Prothrombin Time 10.2 sec (10.0-12.5)
[2023-10-20 15:14] LABS: ALT 34 U/L (4-34); AST 31 U/L (14-36); African American GFR (CKD) >90 (>60 ml/min/1.73 sqM); Albumin 4.6 g/dL (3.5-5.0); Alkaline Phosphatase 102 U/L (38-126); Anion Gap 12 mmol/L; Blood Urea Nitrogen 16 mg/dL (7-17); Calcium 9.5 mg/dL (8.4-10.2); Carbon Dioxide 18 mmol/L (22-30); Chloride 111 mmol/L (98-107); Glucose 113 mg/dL (74-99); Non-African American GFR(CKD) >90 (>60 ml/min/1.73 sqM); Potassium 3.8 mmol/L (3.5-5.1); Sodium 141 mmol/L (137-145); Total Bilirubin 0.8 mg/dL (0.2-1.3); Total Protein 7.5 g/dL (6.3-8.2)
[2023-10-20 15:53] LABS: Appearance,Urine Clear (Clear); Bilirubin,Urine Negative (Negative); Blood,Urine Negative (Negative); Color,Urine Colorless; Glucose,Urine (UA) Negative (Negative); Ketones,Urine Negative (Negative); Leukocyte Esterase,Urine Negative (Negative); Nitrite,Urine Negative (Negative); Protein,Urine Negative (Negative); Specific Gravity,Urine 1.016 (1.001-1.035); Urobilinogen,Urine <2.0 mg/dL (<2.0)
[2023-10-20 16:23] VITALS: BP 142/86; PULSE 66; RESP 18; TEMP 98.2
== END 2023-10-20 16:11 | disposition home or self-care (01) ==
LOC: EC 12:32
DX: R42 Dizziness and giddiness (principal)
CPT/HCPCS: 36415; 71046; 80053; 81003; 85025; 85610; 93005; 96360; 99284

== ENCOUNTER → 2024-05-31 | Outpatient (CLI) | payer OTHER ==
--- NOTE | 2024-06-02 19:51 | MM ---
Reason for Exam: Screening (asymptomatic). Last screening mammogram was performed 12 month(s) ago. Patient History: Menarche at age 13. First Full-Term at age 28. Postmenopausal. Patient has history of breast feeding. 07/10/2022, Benign MG stereo VAD BX RT on the right side. 12/21/2014, MG stereo VAD BX RT on the Right side. 08/22/2021, Benign Core Biopsy on the right side. Mother had breast cancer, left, age 60. Risk Values: Cinthia 5 year model risk: 3.9%. NCI Lifetime model risk: 21.0%. Prior Study Comparison: 05/28/2022 Right MG 3D work up w/cad RT, [facility]. 01/15/2023 Right MG 3D diag mammo w/cad RT, [facility]. 05/26/2023 Bilateral MG 3D diag mammo w/cad DORA, [facility]. Tissue Density: There are scattered areas of fibroglandular density. Findings: Analyzed By CAD. Unchanged bilateral areas of asymmetric density. Microclip right breast from prior biopsy. Benign bilateral round calcifications. There is no suspicious group of microcalcifications or new suspicious mass in either breast. Overall Assessment: Benign, BI-RAD 2 Management: Screening Mammogram of both breasts in 1 year. SEE NOTE BELOW IN REGARDS TO THE PATIENT'S INCREASED 5 YEAR CINTHIA SCORE AND INCREASED LIFETIME RISK SCORE. Patient should continue monthly self-breast exams. A clinical breast exam by your physician is recommended on an annual basis. This exam should not preclude additional follow-up of suspicious palpable abnormalities. Note on Cinthia scores and lifetime risk: 1. A Cinthia score greater than 3% is considered moderate risk. If this is the case, consider specialist referral to assess eligibility for a risk reducing agent. 2. If overall lifetime risk for the development of breast cancer is 20% or higher, the patient may qualify for future screening with alternating mammogram and breast MRI. [facility], , 06/02/2024 7:48 PM. Electronically signed and approved by: Jennifer Cano M.D. Radiologist
== END | disposition home or self-care (01) ==
LOC: RADMAMWWP 13:52
PROVIDERS: ATTEND Obstetrics & Gynecology
CPT/HCPCS: 77063; 77067

== ENCOUNTER → 2025-02-27 | Outpatient (CLI) | payer OTHER ==
--- NOTE | 2025-02-27 15:27 | US ---
EXAMINATION TYPE: US kidneys/renal and bladder DATE OF EXAM: 02/27/2025 COMPARISON: NONE CLINICAL INDICATION: Female, 59 years old with history of N18.2 CKD STAGE 2; TECHNIQUE: Grayscale imaging of the bilateral kidneys and urinary bladder: FINDINGS: EXAM MEASUREMENTS: Right Kidney: 8.5x3.5x4.5 cm Left Kidney: 8.0x4.2x4.3 cm Right Kidney: No hydronephrosis or masses seen Left Kidney: No hydronephrosis or masses seen Bladder: wnl Bilateral Jets seen: Yes There is no evidence for hydronephrosis at this point in time. No nephrolithiasis is seen. No little s are identified. The urinary bladder is anechoic. IMPRESSION: 1. Unremarkable renal ultrasound. [facility], Workstation: [facility], 02/27/2025 3:24 PM
== END | disposition home or self-care (01) ==
LOC: RADUSWWP 14:49
DX: N18.2 Chronic kidney disease, stage 2 (mild) (principal)
CPT/HCPCS: 76770